=== PATIENT | male | born 1955 | race Caucasian/White ===

== ENCOUNTER 2024-10-15 06:21 | Day surgery (SDC) | payer OTHER ==
[2024-10-14 12:00] LABS: Absolute Eosinophils 0.2 K/uL (0-0.5); Absolute Lymphocytes (CBC) 1.6 K/uL (0.7-4.9); Absolute Monocytes 0.6 K/uL (0.1-1.3); Absolute Neutrophil 4.4 K/uL (1.8-8.0); Basophils % 0.7 % (0-1.3); Eosinophils % 2.8 % (0-4.4); Hematocrit 45.4 % (39.6-49.0); Hemoglobin 15.8 g/dL (13.6-17.9); Lymphocytes % 23.9 % (15.3-44.8); MCH 31.3 pg (27.0-35.0); MCHC 34.9 g/dL (32.0-36.0); MCV 89.5 fL (80-100); MPV 7.7 fL (7.6-11.3); Monocytes % 8.2 % (3.3-12.3); Neutrophils % 64.4 % (41.7-73.7); Platelets 170 thou/uL (152-406); RBC Red Blood Cell Count 5.07 M/uL (4.33-5.43); Red Cell Distribution Width 14.4 % (12.1-15.2)
[2024-10-14 12:08] LABS: PT Prothrombin Time 12.9 SECONDS (10-13.0); Protime INR 1.14
[2024-10-14 12:18] LABS: Anion Gap 10.9 mEq/L (5.0-15.0); Potassium 3.9 mEq/L (3.5-5.1)
[2024-10-15] MEDS: NA CHLORIDE 0.9% 1,000 ML ONE (06:55)
[2024-10-15] MEDS ORDERED: LIDOCAINE 2% MPF 5 ML VIAL ONE (07:04)
[2024-10-15] MEDS ORDERED: ONDANSETRON 4 MG/2 ML VIAL ONE (07:04)
[2024-10-15] MEDS ORDERED: propofoL 200 MG/20 ML VIAL IV ONE (07:04)
[2024-10-15] MEDS ORDERED: FENTANYL CITR 100 MCG/2 ML ONE ×2 (07:05→08:05)
[2024-10-15] MEDS ORDERED: MIDAZOLAM HCL 2 MG/2 ML INJ ONE (07:07)
[2024-10-15] MEDS: CEFOXITIN SODIUM 1 GM/VIAL ONE (07:35)
[2024-10-15] MEDS ORDERED: KETOROLAC 30 MG/ML INJ ONE (08:27)
--- NOTE | 2024-10-15 08:52 | P.OP ---
Date of Service: 10/15/24 Preop diagnosis: Symptomatic complex hemorrhoids Postop diagnosis: Same, complex hemorrhoids x 3 with internal and external components Procedure performed: Examiner anesthesia, rigid proctoscopy and complex hemorrhoidectomy x 3 Surgeon: Rohith Best MD Meter Reader Chief: None Estimated blood loss: Minimal Specimen: Complex hemorrhoid with thrombosis x 3 Findings: As above Anesthesia: General Complications: None Fluids and blood products: Nonapplicable Disposition: Recovery room Operative note: Patient brought to the OR and placed in the supine position. General anesthesia began. Patient placed in the lithotomy position. Patient prepped and draped in usual sterile fashion. Examiner anesthesia and proctoscopy revealed complex internal/external hemorrhoids circumferentially. Marcaine 0.5% infiltrated locally for postop pain control. Harmonic scalpel used to excise right lateral, left lateral and posterior midline complex hemorrhoids. Bleeding controlled cautery. No evidence of bleeding seen at this point. Arixtra used. A anal block consisting of Gelfoam Surgicel and Vaseline gauze placed to the anal canal. Sterile dressing applied. Patient awakened and taken to recovery room in good general condition. CC: Dr. Salazar's office
[2024-10-15] MEDS ORDERED: HYDROCODONE/APAP 7.5/325 MG TAB ONE (09:08)
[2024-10-15] MEDS: HYDROCODONE/APAP 7.5/325 MG TAB PO PRN (09:18)
[2024-10-15 09:52] VITALS: BP 126/79; TEMP 97.2; O2SAT 96
== END 2024-10-15 10:03 | disposition home or self-care (01) ==
LOC: OR 06:21
PROVIDERS: ATTEND Surgery
PROC: 06BY0ZC Excision of Hemorrhoidal Plexus, Open Approach (ICD-10-PCS; 2024-10-15)
PROC: 0DJD8ZZ Inspection of Lower Intestinal Tract, Via Natural or Artificial Opening Endoscopic (ICD-10-PCS; principal; 2024-10-15 07:30)
DX: K64.4 Residual hemorrhoidal skin tags (principal)
CPT/HCPCS: 85025; 80048; 36415; 85610; 82947 ×2; 88304; 85730; 45300; 46260; J2704; J2003; J2250; J3010 ×2; J0694; J2405; J7030